=== PATIENT | female | born 1970 | race Caucasian/White ===

== ENCOUNTER → 2019-10-26 | Outpatient (CLI) | payer OTHER ==
[~2019-10-26] MED LIST: BACL-19 PO
[2019-10-26 15:08] LABS: BASOPHILS # (AUTO) 0.04 x10^3/uL (0-0.1); BASOPHILS % (AUTO) 1 % (0-1); EOSINOPHILS # (AUTO) 0.08 x10^3/uL (0-0.4); EOSINOPHILS % (AUTO) 2 % (1-7); LYMPHOCYTES # (AUTO) 1.99 x10^3/uL (1-3.4); LYMPHOCYTES % (AUTO) 42 % (22-44); MD NO; MEAN CORPUSCULAR HEMOGLOBIN 33.2 pg (27.0-34.8); MEAN CORPUSCULAR HGB CONC 33.6 g/dL (32.4-35.8); MEAN CORPUSCULAR VOLUME 98.8 fL (80-100); MEAN PLATELET VOLUME 6.9 fL (7.4-10.4); MONOCYTES # (AUTO) 0.47 x10^3/uL (0.2-0.8); MONOCYTES % (AUTO) 10 % (2-9); NEUTROPHILS # (AUTO) 2.23 x10^3/uL (1.8-6.8); NEUTROPHILS % (AUTO) 46 % (42-75); PLATELET COUNT 292 x10^3/uL (130-400); RED BLOOD COUNT 4.13 x10^6/uL (3.82-5.3); RED CELL DISTRIBUTION WIDTH 13.3 % (9.6-15.2)
[2019-10-26 15:14] LABS: MICROSCOPIC NOT IND
== END | disposition home or self-care (01) ==
LOC: STAR 14:18
PROVIDERS: ATTEND Specialist
DX: Z01.818 Encounter for other preprocedural examination (principal); C50.912 Malignant neoplasm of unspecified site of left female breast
CPT/HCPCS: 36415; 81003; 85025

== ENCOUNTER 2019-10-31 05:39 | Day surgery (SDC) | payer OTHER ==
[~2019-10-31] VITALS: Ht 170.2 cm; Wt 53.8 kg
[2019-10-31 06:16] VITALS: BP 141/91
[2019-10-31] MEDS ORDERED: LIDOCAINE 1%, 20ML ONE (06:16)
[2019-10-31] MEDS ORDERED: EPINEPHRINE 1 MG/ML, 1ML ONE (06:16)
[2019-10-31] MEDS ORDERED: BUPIVACAINE/PF 0.5% ONE (06:16)
[2019-10-31] MEDS ORDERED: BACITRACIN 50,000 UNIT ONE (06:16)
[2019-10-31] MEDS ORDERED: LACTATED RINGERS 1,000 ML IV SCH (06:19)
[2019-10-31] MEDS ORDERED: FENTANYL PF 250 MCG/5ML ONE (06:45)
[2019-10-31] MEDS ORDERED: MIDAZOLAM 1 MG/ML, 2ML ONE (06:45)
[2019-10-31] MEDS ORDERED: DIAZEPAM 5 MG TABLET ONE (06:49)
[2019-10-31] MEDS ORDERED: SCOPOLAMINE PATCH, 1.5MG PATCH.TD72 TD ONE ×2 (06:49→07:00)
[2019-10-31] MEDS ORDERED: SUCCINYLCHOLINE 20 MG/ML, 10ML ONE (06:49)
[2019-10-31] MEDS ORDERED: ROCURONIUM 10MG/ML,5ML ONE (06:49)
[2019-10-31] MEDS ORDERED: ACETAMINOPHEN 500 MG TABLET ONE (06:50)
[2019-10-31] MEDS ORDERED: GABAPENTIN 300 MG CAPSULE ONE (06:50)
[2019-10-31] MEDS ORDERED: DEXAMETHASONE 4 MG/ML, 1ML ONE ×2 (06:53)
[2019-10-31] MEDS ORDERED: PROPOFOL 10 MG/ML, 20ML ONE (06:53)
[2019-10-31] MEDS ORDERED: CEFAZOLIN 1,000 MG ONE ×2 (06:53)
[2019-10-31] MEDS ORDERED: GABAPENTIN 300 MG CAPSULE PO ONE (07:00)
[2019-10-31] MEDS ORDERED: ACETAMINOPHEN 500 MG TABLET PO ONE (07:00)
[2019-10-31] MEDS ORDERED: DIAZEPAM 5 MG TABLET PO ONE (07:00)
[2019-10-31] MEDS ORDERED: EPHEDRINE 50 MG/ML, 1ML ONE (07:29)
[2019-10-31] MEDS ORDERED: ONDANSETRON 2MG/ML, 2ML ONE (07:29)
[2019-10-31] MEDS ORDERED: ALBUTEROL SULFATE 2.5 MG/3 ML NPPB PRN (07:30)
[2019-10-31] MEDS ORDERED: ONDANSETRON ODT 8 MG PO PRN (07:30)
[2019-10-31] MEDS ORDERED: DIAZEPAM 5 MG/ML, 2ML IVPush PRN (07:30)
[2019-10-31] MEDS ORDERED: PROMETHAZINE 12.5 MG SUPP PR PRN (07:30)
[2019-10-31] MEDS ORDERED: FENTANYL PF 100 MCG/2ML IV PRN (07:30)
[2019-10-31] MEDS ORDERED: EPHEDRINE 50 MG/ML, 1ML IVPush PRN (07:30)
[2019-10-31] MEDS ORDERED: HYDROmorphone 2 MG/ML, 1ML IVPush PRN (07:30)
[2019-10-31] MEDS ORDERED: OXYcodone 5 MG/5 ML ORAL.SOL UDC PO PRN (07:30)
[2019-10-31] MEDS ORDERED: LABETALOL 5MG/ML, 20ML IV PRN (07:30)
[2019-10-31] MEDS ORDERED: PROMETHAZINE 25 MG/ML, 1ML IV PRN (07:30)
[2019-10-31] MEDS ORDERED: hydrALAzine 20 MG/ML, 1ML IV PRN (07:30)
[2019-10-31] MEDS ORDERED: MIDAZOLAM 1 MG/ML, 2ML IV PRN (07:30)
[2019-10-31] MEDS ORDERED: HALOPERIDOL 5 MG/ML IV PRN (07:30)
[2019-10-31] MEDS ORDERED: ONDANSETRON 2MG/ML, 2ML IV PRN (07:30)
[2019-10-31] MEDS ORDERED: MEPERIDINE/PF 25MG/ML,1ML IVPush PRN (07:30)
== END 2019-10-31 12:15 | disposition home or self-care (01) ==
LOC: OUT 05:39
PROVIDERS: ATTEND Specialist
DX: N65.0 Deformity of reconstructed breast (principal); N64.89 Other specified disorders of breast; T85.898A Other specified complication of other internal prosthetic devices, implants and grafts, initial encounter; Z85.3 Personal history of malignant neoplasm of breast; Z90.11 Acquired absence of right breast and nipple; Z79.899 Other long term (current) drug therapy
CPT/HCPCS: 19316; 19366; 19380; C1789; J0171; J0330; J0690; J1100; J2250; J2405; J2704; J3010; J7120